=== PATIENT | female | born 1955 | race Two or more races ===

== ENCOUNTER 2018-04-24 07:50 | Inpatient (IN) | payer MEDICARE, MEDICAID ==
--- NOTE | 2018-04-23 13:10 | NUR ---
ADMITTED VIA [facility],LUISA #[id number]
[~2018-04-24] VITALS: Ht 162.6 cm; Wt 88.5 kg
[2018-04-24] VITALS (7 sets, daily range): BP systolic 96–139; BP diastolic 54–73
--- NOTE | 2018-04-24 07:07 | Anethesia Preoperative Eval ---
Anesthesia Pre-op PMH/ROS General Date of Evaluation: Apr 24, 2018 Anesthesiologist: Blake ASA Score: ASA 2 Mallampati Score Class I : Soft palate, uvula, fauces, pillars visible Class II: Soft palate, uvula, fauces visible Class III: Soft palate, base of uvula visible Class IV: Only hard plate visible Mallampati Classification: Class II Surgeon: Gloria Diagnosis: Cystocele and rectocele Surgical Procedure: Vaginal sling, cystocele and rectocele repair Anesthesia History: none Family History: no anesthesia problems Allergies: Coded Allergies: PENICILLINS (Verified Allergy, Unknown, Rash, 04/23/18) AMITRIPTYLINE (Verified Adverse Reaction, Unknown, 04/23/18) Medications: see eMAR Patient NPO?: Yes NPO Date: Apr 24, 2018 Past Medical History Cardiovascular: Denies: HTN, CAD, [place], valve dz, arrhythmia, other Pulmonary: Denies: asthma, COPD, JOEY, other Gastrointestinal/Genitourinary: Reports: GERD; Denies: CRI, ESRD, other Neurologic/Psychiatric: Denies: dementia, CVA, depression/anxiety, TIA, other Endocrine: Reports: hypothyroidism; Denies: DM, steroids, other HEENT: Denies: cataract (L), cataract (R), glaucoma, [place] (L), [place] (R), other Hematology/Immune: Denies: anemia, DVT, bleeding disorder, other Musculoskeletal/Integumentary: Denies: OA, RA, DJD, DDD, edema, other Other: obesity PSxH Narrative: lap maranda, lap appy, bladder sx, left ankle orif, cystoscopy Anesthesia Pre-op Phys. Exam Physician Exam see chart Constitutional: NAD Cardiovascular: RRR Respiratory: CTA Airway Exam Mallampati Score: Class III MO: limited ROM: limited Teeth: missing, broken Anesthesia Pre-op A/P Labs see chart Studies Pre-op Studies: EKG - sr Risk Assessment & Plan Assessment: ASA II Plan: GA Status Change Before Surgery: No Pre-Antibiotics Drug: Toña Castro MD Apr 24, 2018 07:07
[~2018-04-24 07:50] MED LIST: Bacitracin 50000 Units Vial ONE; Bupivacaine w/Epi 0.5% 30ml Vial INJ ONE; DiphenhydrAMINE 50mg/ml Inj IVP PRN; Hydromorphone 0.5mg/0.5ml inj IVP PRN; Ketorolac 30mg Inj IV PRN; LEVOTHYROXINE75 MCG ORAL; LORazepam Inj 2mg/ml 1ml IV PRN; LR 1000ml 1,000 ML IVLG SCH; Metoclopramide 10mg/2ml Inj IVP PRN; Midazolam 2mg/2ml Inj IVP PRN; NeoSporin Gu Irrig 1ml Amp IRRIG ONE; ProvayBlue 5mg/ml 10ml amp INJ ONE; Sulfanilamide 15% Cream - 78gm VAGIN ONE; fentaNYL 100 mcg/2 mL IV PRN
--- NOTE | 2018-04-24 08:30 | NUR ---
Additional physical assessment: Bilateral legs skin very dry , no open skin areas noted. Small varicose veins to both lower legs.
[2018-04-24] MEDS ORDERED: Clindamycin 600mg 50 ML IV ONE (08:58)
[2018-04-24] MEDS ORDERED: Midazolam 2mg/2ml Inj ONE (08:59)
[2018-04-24] MEDS ORDERED: Lidocaine 1% MPF 10mg/ml 5ml ONE (08:59)
[2018-04-24] MEDS ORDERED: fentaNYL 100 mcg/2 mL IV ONE (08:59)
[2018-04-24] MEDS ORDERED: Propofol 200mg/20ml IV ONE (08:59)
[2018-04-24] MEDS ORDERED: LR 1000ml ONE ×2 (09:00)
[2018-04-24] MEDS ORDERED: NS Irrig 1000ml ONE (09:00)
[2018-04-24] MEDS ORDERED: Sterile Water Irrig 1000ml IRRIG ONE (09:00)
[2018-04-24] MEDS ORDERED: SYNTHROID88 MCG ORAL (09:06)
[2018-04-24] MEDS ORDERED: OMEPRAZOLE20 M3 ORAL (09:09)
--- NOTE | 2018-04-24 09:31 | Pre-Procedure Note/Attestation ---
Pre-Procedure Note/Attestation Complete Prior to Procedure Planned Procedure: not applicable Procedure Narrative: vaginal sling Cystocele repair cystoscopy Indications for Procedure Pre-Operative Diagnosis: vaginal prolapse stress incontinence Attestation I attest that I discussed the nature of the procedure; its benefits; risks and complications; and alternatives (and the risks and benefits of such alternatives ), prior to the procedure, with the patient (or the patient's legal insurance verification representative). I attest that, if there was a reasonable possibility of needing a blood transfusion, the patient (or the patient's legal insurance verification representative) was given the [facility] standardized written summary, pursuant to the Devyn Adarsh Blood Safety Act ([place] Health and Safety Code # 1645, as amended). I attest that I re-evaluated the patient just prior to the surgery and that there has been no change in the patient's H&P, except as documented below: Mitch Castro MD Apr 24, 2018 09:31
[2018-04-24] MEDS ORDERED: Ketorolac 30mg Inj ONE (09:43)
--- NOTE | 2018-04-24 09:57 | Brief Operative Note ---
Immediate Post Operative Note Operative Note Pre-op Diagnosis: vaginal prolapse stress incontinence Procedure: vaginal sling cystocele repair, cystoscopy Post-op Diagnosis: same Surgeon: Prince Castro Anesthesia: general Specimen: none Complications: none Condition: stable Fluids: 500 Estimated Blood Loss: minimal Implant(s) used?: No Mitch Castro MD Apr 24, 2018 09:57
--- NOTE | 2018-04-24 10:07 | Immediate Post-Op Evaluation ---
Immediate Post-Op Evalulation Immediate Post-Op Evalulation Procedure: vaginal sling, cystocele and rectocele repair Date of Evaluation: Apr 24, 2018 Time of Evaluation: 10:09 IV Fluids: 800 Blood Products: 0 Estimated Blood Loss: min Urinary Output: 0 Blood Pressure Systolic: 125 Blood Pressure Diastolic: 73 Pulse Rate: 86 Respiratory Rate: 16 O2 Sat by Pulse Oximetry: 99 Temperature (Fahrenheit): 98 Pain Score (1-10): 0 Nausea: No Vomiting: No Complications 0 Patient Status: awake, reacts, patent, none Hydration Status: adequate Drug: Clindamcyin 600mg Given Within 1 Hr of Incision: Yes Time Given: 09:15 Toña Pandey MD Apr 24, 2018 10:07
--- NOTE | 2018-04-24 10:08 | 48 Hour Post Anesthesia Eval ---
Post Anesthesia Evaluation Procedure: vaginal sling, cystocele and rectocele repair Date of Evaluation: Apr 24, 2018 Airway: patent Nausea: No Vomiting: No Pain Intensity: 0 Hydration Status: adequate Cardiopulmonary Status: at baseline Mental Status/LOC: patient returned to baseline Post-Anesthesia Complications: 0 Follow-up care needed: ready to discharge Toña Pandey MD Apr 24, 2018 10:08
[2018-04-24 11:05] LABS: BASOPHILS % (AUTO) 1.5 % (0.0-2.0); EOSINOPHILS % (AUTO) 1.8 % (0.0-3.0); HEMATOCRIT 38.5 % (37.0-47.0); HEMOGLOBIN 12.6 G/DL (12.0-16.0); LYMPHOCYTES % (AUTO) 36.3 % (20.0-45.0); MEAN CORPUSCULAR VOLUME 95 FL (80-99); MONOCYTES % (AUTO) 8.2 % (1.0-10.0); NEUTROPHILS % (AUTO) 52.2 % (45.0-75.0); PLATELET COUNT 252 K/UL (150-450); RED BLOOD COUNT 4.06 M/UL (4.20-5.40); RED CELL DISTRIBUTION WIDTH 13.3 % (11.6-14.8); WHITE BLOOD COUNT 8.2 K/UL (4.8-10.8)
[2018-04-24 11:26] LABS: ANION GAP 11 mmol/L (5-15); BLOOD UREA NITROGEN 14 mg/dL (7-18); CALCIUM 8.4 MG/DL (8.5-10.1); CARBON DIOXIDE 23 MMOL/L (21-32); CHLORIDE 109 MMOL/L (98-107); CREATININE 0.7 MG/DL (0.55-1.30); POTASSIUM 4.5 MMOL/L (3.5-5.1); SODIUM 143 MMOL/L (136-145)
--- NOTE | 2018-04-24 11:30 | NUR ---
NURSE NOTES: Received report from Leyda PHAM. pt a/a/o x4 laying in bed with no signs of distress or other issues at this time. Cowan in place draining well. IV on the left arm Gauge #20. call light within reach, bed in lowest position. side rales up x2. I will f/u as needed.
[2018-04-24] MEDS: HYDROmorphone 1mg/ml Carpuject IVP PRN ×2 (12:33→20:30)
[2018-04-24] MEDS: D5 1/2NS w/KCl 20mEq 1,000 ML IV SCH ×2 (12:34→22:46)
[2018-04-24] MEDS ORDERED: ceFAZolin sod 2 GM in D5W 110 ML IV SCH (14:00)
[2018-04-24] MEDS ORDERED: Levofloxacin 500mg tab ORAL SCH (18:00)
--- NOTE | 2018-04-24 19:30 | NUR ---
NURSE NOTES: Received report from ANKIT Treviño. Received pt laying in bed, AOX4, denies pain, no distress. Pt Filipino speaking only, able to make needs known without any problems. Vaginal packing in place C/D/I. Cowan in place patent and draining yellow color output. Bed in lowest position and locked, side rails up x 2, call light within reach. Will continue to monitor.
--- NOTE | 2018-04-24 19:42 | NUR ---
HAND-OFF: Report given to Adilson Roldan pt in stable condition.
--- NOTE | 2018-04-24 20:08 | NUR ---
CASE MANAGEMENT: REVIEW 63/F DIRECT ADMIT FROM HOME CC: VAGINAL PROLAPSE STRESS INCONTINENCE SI: CYSTOCELE AND RECTOCELE VAGINAL SLING CYSTOCELE REPAIR CYSTOSCOPY 04/24 T 97.5 HR 65 RR 18 BP 118/71 SAT 98% ROOM AIR IS: LACTATED RINGER'S IVF BOLUS X1 CLINDAMYCIN IV X1 VERSED IV X1 FENTANYL IV X1 DILAUDID IV X1 INTERQUAL CRITERIA MET: PATIENT ADMITTED TO MED/SURG UNIT 04/24/2018 DCP: PATIENT IS FROM HOME
[2018-04-24] MEDS: Ketorolac 30mg Inj IV PRN (22:50)
[2018-04-25] VITALS: BP 102/53
[2018-04-25 04:00] VITALS: BP 111/54
--- NOTE | 2018-04-25 06:00 | NUR ---
NURSE NOTES: Vaginal packing removed per MD order. No bleeding noted. No distress noted.
[2018-04-25] MEDS: Ketorolac 30mg Inj IV PRN (06:08)
[2018-04-25 07:11] LABS: EOSINOPHILS % (AUTO) 2.7 % (0.0-3.0); HEMATOCRIT 35.2 % (37.0-47.0); HEMOGLOBIN 11.7 G/DL (12.0-16.0); LYMPHOCYTES % (AUTO) 36.5 % (20.0-45.0); MEAN CORPUSCULAR VOLUME 95 FL (80-99); NEUTROPHILS % (AUTO) 52.8 % (45.0-75.0); PLATELET COUNT 263 K/UL (150-450); RED BLOOD COUNT 3.71 M/UL (4.20-5.40); WHITE BLOOD COUNT 8.2 K/UL (4.8-10.8)
[2018-04-25 07:28] LABS: ANION GAP 8 mmol/L (5-15); BLOOD UREA NITROGEN 12 mg/dL (7-18); CALCIUM 8.3 MG/DL (8.5-10.1); CARBON DIOXIDE 25 MMOL/L (21-32); CHLORIDE 108 MMOL/L (98-107); CREATININE 0.8 MG/DL (0.55-1.30); POTASSIUM 4.5 MMOL/L (3.5-5.1); SODIUM 141 MMOL/L (136-145)
--- NOTE | 2018-04-25 07:30 | NUR ---
NURSE NOTES: Received report from ANKIT De Anda. Patient a/o x4 and having breakfast. No respiratory discomfort noted. Denies any pain at this time. Call light within reach and will continue to monitor.
--- NOTE | 2018-04-25 07:33 | NUR ---
HAND-OFF: Report given to ANKIT Camacho. Pt in stable condition.
[2018-04-25 08:00] VITALS: BP 130/68
[2018-04-25] MEDS: D5 1/2NS w/KCl 20mEq 1,000 ML IV SCH (08:31)
[2018-04-25] MEDS ORDERED: NORCO 5-325 TA1 EACH ORAL (10:59)
[2018-04-25 12:00] VITALS: BP 116/65
[2018-04-25] MEDS: HYDROmorphone 1mg/ml Carpuject IVP PRN (12:28)
--- NOTE | 2018-04-25 13:30 | NUR ---
NURSE NOTES: Discharge instruction was given. All belongings were given. Changed urine bag to leg bag and instruction for changing bag was given to the patient and daughter. Removed IV. Discharged accompanied by the daughter in stable condition.
--- NOTE | 2018-04-25 15:45 | History and Physical Report ---
DATE OF ADMISSION: 04/24/2018 INTERNAL MEDICINE CONSULTATION/HISTORY AND PHYSICAL: HISTORY OF PRESENT ILLNESS: This is a very pleasant 63-year-old female, who has undergone vaginal sling/cystocele repair and cystoscopy by Dr. Mitch Castro. At this time, the patient states she is feeling well. Denies new complaints. PAST MEDICAL HISTORY: Notable for coccygeal pain and sacral pain as well as dizziness. She previously also had tendonitis of right lower extremity. She has history of H. pylori and severe chronic active gastritis and hiatal hernia. She also has osteoarthrosis, hypothyroidism, obesity, and hyperlipidemia. She also reports history of hearing loss and cholelithiasis. PREVIOUS SURGERIES: Appendectomy and cholecystectomy. ALLERGIES: Amitriptyline, Flagyl, and penicillin. SOCIAL HISTORY: No alcohol or tobacco use. REVIEW OF SYSTEMS: Denies any headaches, hematemesis, melena, or hematochezia. PHYSICAL EXAMINATION: GENERAL: Reveals a 63-year-old female. HEENT: Unremarkable. LUNGS: Clear breath sounds bilaterally. ABDOMEN: Soft. NEUROLOGIC: Nonfocal. IMPRESSION: 1. Postop day #1 status post cystoscopy and vaginal sling. 2. History of cholelithiasis. 3. Hypothyroidism. 4. Hyperlipidemia. 5. Osteoarthrosis. DISCUSSION: At this point, the patient is doing well. We will advance diet. We will discharge home. Outpatient followup with Dr. Castro in 1 weeks' time. Gelacio Motley M.D. DR: ALLISON JOB#: [id number] CC:
--- NOTE | 2018-04-25 16:15 | Operative Note - Dictated ---
DATE OF OPERATION: 04/24/2018 NOTE: POOR AUDIO QUALITY PREOPERATIVE DIAGNOSIS: Vaginal prolapse, stress incontinence. POSTOPERATIVE DIAGNOSIS: Vaginal prolapse, stress incontinence. OPERATIONS: Transvaginal cystocele repair, vaginal wall sling, cystoscopy. OPERATED BY: Mitch Castro M.D. ANESTHESIA: General. FINDINGS: Prolapse vagina, open urethra, stress incontinence. INDICATIONS FOR SURGERY: The patient symptoms, had treatment with without any success. findings. Treatment options were explained to her in great length including all potential complications and she signed the consent. DESCRIPTION OF PROCEDURE: She was brought to the operating room, placed in lithotomy position, and prepped and draped in the standard fashion. Under general anesthesia, was placed, vagina was exposed, midline incision was made. The bladder was from the vagina and standard cystocele repair with interrupted 2-0 Vicryl sutures in the position was made. After that, synthetic sling was placed in the mid urethra with self-retained cystoscopy was normal. Ureters . Cowan catheter was placed. Vagina was packed. Wound was closed with 3-0 Vicryl suture. The patient tolerated the procedure well. Estimated blood loss was approximately 20 mL. The patient was transferred to recovery room in stable condition. Sponge count and instrument count was correct. Mitch Castro M.D. DR: CORIE JOB#: [id number] CC:
--- NOTE | 2018-04-26 13:04 | Discharge Summary ---
Discharge Summary Discharge Summary _ DATE OF ADMISSION: 04/24/2018 DATE OF DISCHARGE: 04/25/2018 SURGEON: Dr. Mitch Castro LIFT DRIVER: Dr. Moncho Motley BRIEF HOSPITAL COURSE: Patient is a 63-year-old female, with history vaginal prolapse, stress incontinence. Patient had suffered from symptoms and treatment was without any success. She was admitted and underwent trans-vaginal cystocele repair, vaginal wall sling, and cystoscopy. She tolerated procedure well. Postprocedure, she was admitted for postop care. She was given pain management. She was continued on antibiotic. Diet was advanced. Vital signs were stable. Blood work were stable. She was encouraged use of incentive spirometry. Cowan was attached to a leg bag. Patient was eventually cleared for discharge home. FINAL DIAGNOSES: Vaginal prolapse with stress incontinence Status post cystoscopy, transvaginal cystocele, vaginal wall sling DISPOSITION: Patient was discharged home. DISCHARGE MEDICATIONS: Refer to Discharge Medication List. DISCHARGE INSTRUCTIONS: Follow-up in a week. I have been assigned to complete a discharge summary on this account, I was not involved with the patient's management. Cathy Huitron NP Apr 26, 2018 13:04
== END 2018-04-25 13:20 | disposition home or self-care (01) | DRG 748 ==
LOC: SDS 07:50 → 3E 11:53
PROC: 0TSD0ZZ Reposition Urethra, Open Approach (ICD-10-PCS; principal; 2018-04-24 07:30)
PROC: 0JQC0ZZ Repair Pelvic Region Subcutaneous Tissue and Fascia, Open Approach (ICD-10-PCS; principal; 2018-04-24 07:30)
DX: N81.10 Cystocele, unspecified (principal); M19.90 Unspecified osteoarthritis, unspecified site; E03.9 Hypothyroidism, unspecified; E66.9 Obesity, unspecified; E78.5 Hyperlipidemia, unspecified; H91.90 Unspecified hearing loss, unspecified ear; Z90.49 Acquired absence of other specified parts of digestive tract; Z68.33 Body mass index [BMI] 33.0-33.9, adult
CPT/HCPCS: 36415; 80048; 85025; 94003; 94150; J2250; J2405; S0077